=== PATIENT | male | born 1995 | race Two or more races ===

== ENCOUNTER 2023-01-17 16:53 | Emergency (ER) | payer MEDICAID ==
[~2023-01-17] VITALS: Ht 172.7 cm; Wt 104.3 kg
[2023-01-17 18:33] VITALS: BP 149/90; PULSE 83; RESP 18; TEMP 99.5; O2SAT 97
[2023-01-17] MEDS ORDERED: CEPH500C PO ×3 (18:55→19:57)
[2023-01-17] MEDS ORDERED: IBUP-1456 PO ×3 (18:55→19:57)
[2023-01-17] MEDS ORDERED: LIDOCAINE 1% HCL (LOCAL ANESTH.) INJ 20ML MDV IJ ONE (19:15)
== END 2023-01-17 20:55 | disposition home or self-care (01) ==
LOC: ER 16:53
DX: S61.012A Laceration without foreign body of left thumb without damage to nail, initial encounter (principal); Z79.1 Long term (current) use of non-steroidal anti-inflammatories (NSAID); Z79.899 Other long term (current) drug therapy; W27.0XXA Contact with workbench tool, initial encounter; Y93.89 Activity, other specified; Y92.89 Other specified places as the place of occurrence of the external cause; Y99.8 Other external cause status
CPT/HCPCS: 12001; 73140; 99283; J2001